=== PATIENT | male | born 1980 | race Caucasian/White ===

== ENCOUNTER 2021-11-18 16:37 | Inpatient (IN) | payer SELFPAY ==
[~2021-11-18] VITALS: Ht 182.9 cm; Wt 65.4 kg
[2021-11-18 18:55] LABS: BASO # 0.1 K/mm3 (0.0-0.2); BASO % 0.7 % (0.0-2.0); EOS # 0.3 K/mm3 (0.0-0.7); EOS % 4.4 % (0.0-4.0); GRAN # 4.4 K/mm3 (1.4-6.5); GRAN % 62.6 % (42.2-75.2); HEMATOCRIT 43.7 % (42.0-52.0); HEMOGLOBIN 14.5 g/dl (13.5-18.0); LYMPH # 1.6 K/mm3 (1.2-3.4); LYMPH % 22.3 % (20.0-51.0); MEAN CELL VOLUME 92 fl (80.0-100.0); MEAN CORPUSCULAR HEMOGLOBIN 31 pg (27-31); MEAN CORPUSCULAR HGB CONC 33 g/dl (33.0-37.0); MEAN PLATELET VOLUME 8.6 fl (7.4-10.4); MONO # 0.7 K/mm3 (0.1-0.6); MONO % 9.7 % (1.7-9.3); PLATELET COUNT 362 K/mm3 (130-400); RED BLOOD COUNT 4.75 M/mm3 (4.20-5.60); REDCELL DISTRIBUTION WIDTH-CV 12.2 % (11.5-14.5)
[2021-11-18 19:13] LABS: ALBUMIN 3.3 gm/dL (3.5-5.0); BILIRUBIN,TOTAL 0.2 mg/dL (0.2-1.2); C-REACTIVE PROTEIN 1.9 mg/dL (0.00-0.50); CALCIUM 9.1 mg/dL (8.4-10.2); CREATININE, serum 1.08 mg/dL (0.72-1.25); POTASSIUM 4.3 mmol/L (3.5-4.5); TOTAL PROTEIN 7.3 gm/dL (6.2-8.1)
--- NOTE | 2021-11-18 23:28 | NUR ---
Vancomycin Initial Dosing Pharmacy Note Ordering provider: Juan Simpson MD Indication/duration: Cellulitis/finger abcess x 7 days Relevant comorbidities: N/A LABS: SCr = 1.08, WBC = 7.0, Afebrile, Cultures ordered Recommendation: Will draw troughs and follow levels. Loading dose: 1 gram Maintenance dose: 1 gram every 12 hours Trough goal: 10-15 ug/mL
[2021-11-19 01:27] VITALS: BP 131/90; PULSE 61; TEMP 98.5
[2021-11-19 04:09] VITALS: BP 148/84; PULSE 83; TEMP 97.8
--- NOTE | 2021-11-19 04:30 | NUR ---
Pt arrived to the floor via ambulation and ED nurse at his side. Assmessment and admission completed without difficulty. Pt has been pleasant and is A&Ox4.
--- NOTE | 2021-11-19 07:41 | NUR ---
Pt has had an uneventful morning. Resting quietly in bed after eating a sandwich box. Pt has had other needs fulfilled, call light within reach.
[2021-11-19 08:05] VITALS: BP 127/85; PULSE 75; TEMP 97.9
[2021-11-19 08:37] LABS: BASO % 0.6 % (0.0-2.0); EOS # 0.3 K/mm3 (0.0-0.7); EOS % 4.3 % (0.0-4.0); GRAN # 3.7 K/mm3 (1.4-6.5); GRAN % 58.5 % (42.2-75.2); HEMOGLOBIN 13.8 g/dl (13.5-18.0); LYMPH # 1.7 K/mm3 (1.2-3.4); LYMPH % 26.7 % (20.0-51.0); MEAN CELL VOLUME 93 fl (80.0-100.0); MEAN CORPUSCULAR HEMOGLOBIN 31 pg (27-31); MEAN CORPUSCULAR HGB CONC 33 g/dl (33.0-37.0); MEAN PLATELET VOLUME 8.9 fl (7.4-10.4); MONO # 0.6 K/mm3 (0.1-0.6); MONO % 9.7 % (1.7-9.3); PLATELET COUNT 361 K/mm3 (130-400); RED BLOOD COUNT 4.52 M/mm3 (4.20-5.60); REDCELL DISTRIBUTION WIDTH-CV 12.3 % (11.5-14.5)
[2021-11-19 08:52] LABS: CALCIUM 8.7 mg/dL (8.4-10.2); CREATININE, serum 1.02 mg/dL (0.72-1.25); POTASSIUM 3.9 mmol/L (3.5-4.5)
[2021-11-19 11:59] VITALS: BP 119/92; PULSE 89; TEMP 98
--- NOTE | 2021-11-19 14:59 | NUR ---
PT RESTING IN ROOM, LOOKING @ CELLPHONE, DENIES NEEDS, HAS BEEN UP TO BR INDEPENDENTLY ET WAS ASSISTED TO TAKE A SHOWER THIS AM. DRESSING CDI TO RIGHT INDEX FINGER. PT HAS BEEN GIVEN NORCO FOR PAIN. RESPIRATIONS UNLABORED. CALL LIGHT WITHIN REACH.
[2021-11-19 16:07] VITALS: BP 141/85; PULSE 70; TEMP 98.1
--- NOTE | 2021-11-19 16:56 | NUR ---
Kinesiotherapist met with patient Trent for intake assessment/discharge planning; per nursing report patient reports he is homeless. Patient appears to be sleeping as his nurse exits the room, and he startles at at this Kinesiotherapist's arrival. He is somewhat agreeable to speak, guarded. he states he lives alone in a home in [place], and his father, also named Trent, is his next-of-kin. He does not have a phone number for his father and he does not share information about his home address. He states he is "not really" interested in information for primary care, as he is self-pay, and when educated about [facility] states "They won't take me anymore," but does not further elaborate but then indicates he has never been there. He is not receptive to further information about this. He states it would be helpful "I guess" for a voucher for any prescription medications recommended at discharge. He states he has someone who can provide him transportation at discharge. Patient reports ambivalence about need for financial resources but accepts a patient financial assistance application. He declines interest in DPOA-HC and/or paperwork. Patient reports no needs for discharge. He does accept a handout guide for community resources. *Discharge to home with friend transport. He may benefit from a medication voucher for any prescribed medications at discharge*
--- NOTE | 2021-11-19 21:00 | NUR ---
PT IN BED, FLAT AFFECT, DOES NOT VERBALIZE MUCH WITH THIS NURSE, ANSWERS YES/NO QUESTIONS. HAS INT TO LAC, FLUSHES WELL, IV ANTIBIOTIC GIVEN. HAS DRSG TO RT INDEX FINGER, D/I.
[2021-11-19 21:41] VITALS: BP 114/67; PULSE 60; TEMP 98.5
--- NOTE | 2021-11-19 22:06 | NUR ---
MEDICATED WITH NORCO 1 TAB PO FOR PAIN TO RT FINGER.
[2021-11-20 04:49] VITALS: BP 139/90; PULSE 68; TEMP 97.7
--- NOTE | 2021-11-20 06:12 | NUR ---
PT AWAKE, MEDICATED WITH NORCO 1 TAB PO FOR RT INDEX FINGER PAIN. IV VANCO INFUSING TO LEFT AC SITE WITHOUT REDNESS OR SWELLING.
[2021-11-20 07:54] VITALS: BP 128/83; PULSE 67; TEMP 98.9
[2021-11-20 11:00] VITALS: BP 127/79; PULSE 65; TEMP 98
--- NOTE | 2021-11-20 11:00 | NUR ---
THIS NURSE INFORMED BY [employer] SERVICE SUPERVISOR THAT IT SMELLS THOUGH PT HAS BEEN SMOKING IN THE ROOM BR. PT EDUCATED ON SMOKING POLICY, STATES THAT HE DID SMOKE IN THERE ONCE BUT AGREES TO NOT DO IT AGAIN. PT INSTRUCTED TO CALL FOR NEEDS, IS GIVEN SNACKS ET PEPSI TO DRINK. DRESSING ON PT'S RIGHT HAND HAD FALLEN OFF, HAS BEEN REPLACED. WOUND ON RIGHT INDEX FINGER IS PINK. VASELINE GAUZE, ET GAUZE WRAP PLACED, PT INSTRUCTED ON HOW TO CHANGE DRESSINGS DAILY.
[2021-11-20] MEDS ORDERED: LEVAQUIN 750MG750 M1 PO (12:18)
[2021-11-20] MEDS ORDERED: DOXYCYCLINE HY100 MG PO ×3 (12:19→12:54)
[2021-11-20] MEDS ORDERED: PROBIOTIC BLEN1 EACH PO (12:22)
[2021-11-20] MEDS ORDERED: MOTRIN 200200 MG/TAB PO (12:54)
--- NOTE | 2021-11-20 13:00 | NUR ---
SW gave pt a medication voucher and made a copy and placed under Director Gonzalo.
--- NOTE | 2021-11-20 14:04 | NUR ---
PT IS TO BE DISCHARGED TO HOME TODAY, LIVES IN [place]. PT GIVEN DISCHARGE INSTRUCTIONS ET EDUCATION, ALSO GIVEN SUPPLIES FOR DRESSING CHANGES, DEMONSTRATES UNDERSTANDING. PT INSTRUCTED TO CALL OROTHOPEDIC OFFICE FOR F/U APPT, VERBALIZES UNDERTSTANDING. PT IS CURRENTLY WAITING FOR HIS RIDE HOME, DENIES NEEDS.
== END 2021-11-20 17:00 | disposition home or self-care (01) | DRG 603 ==
LOC: COL.ER 16:37 → SURG 19:41
PROVIDERS: Nurse Practitioner Family; Student in an Organized Health Care Education/Training Program; ADMIT Internal Medicine
PROC: 0X9J0ZZ Drainage of Right Hand, Open Approach (ICD-10-PCS; principal; 2021-11-18)
DX: L03.011 Cellulitis of right finger (principal); L02.511 Cutaneous abscess of right hand; F17.210 Nicotine dependence, cigarettes, uncomplicated; G89.29 Other chronic pain; M54.9 Dorsalgia, unspecified; B96.89 Other specified bacterial agents as the cause of diseases classified elsewhere
CPT/HCPCS: 99223-AI; 99233-AI; 99239; J0696; J1650; J2270; J2405; J3370; J7030; J7050